=== PATIENT | male | born 1995 | race Caucasian/White ===

== ENCOUNTER 2023-07-26 23:17 | Emergency (ER) | payer OTHER ==
[2023-07-26 23:23] VITALS: BP 147/93; PULSE 96; RESP 20; TEMP 97.9; BMI 34.4
[2023-07-27] MEDS ORDERED: KETOROLAC TROMETHAMINE 15 MG/ML VIAL ONE (01:30)
[2023-07-27] MEDS ORDERED: ACETAMINOPHEN 325 MG TABLET (FP) ONE (01:30)
[2023-07-27] MEDS: KETOROLAC TROMETHAMINE 15 MG/ML VIAL IM ONE (01:35)
[2023-07-27] MEDS: ACETAMINOPHEN 325 MG TABLET (FP) PO ONE (01:36)
== END 2023-07-27 02:10 | disposition home or self-care (01) ==
LOC: JER 23:17
PROC: 3E0233Z Introduction of Anti-inflammatory into Muscle, Percutaneous Approach (ICD-10-PCS; principal; 2023-07-27)
DX: R00.2 Palpitations (principal); M79.602 Pain in left arm
CPT/HCPCS: 93005; 93010; 99284-25

== ENCOUNTER 2023-08-19 21:56 | Emergency (ER) | payer OTHER ==
[2023-08-19 21:59] VITALS: BP 131/85; PULSE 80; RESP 20; TEMP 98.2; BMI 33.3
[2023-08-19] MEDS ORDERED: FLUORESCEIN NA 1 EA STRIP ONE (22:03)
[2023-08-19] MEDS ORDERED: TETRACAINE 0.5% OPHTH SOLN 2 ML BOTTLE ONE (22:04)
[2023-08-19] MEDS: TETRACAINE 0.5% HCL 0.6ML DROPPER.BOTTLE OD ONE (22:04)
[2023-08-19] MEDS: FLUORESCEIN SODIUM 10% 500 MG/5 ML VIAL IVPUSH ONE (22:04)
[2023-08-19] MEDS ORDERED: ERYTHROMYCIN 0.5% OPHTHALMIC OINTMENT 3.5 GM TUBE ONE (22:11)
[2023-08-19] MEDS: ERYTHROMYCIN 0.5% OPHTHALMIC OINTMENT 3.5 GM TUBE OS ONE (22:26)
[2023-08-20] MEDS ORDERED: ERYTHROMYCIN 0.5% OPHTHALMIC OINTMENT 3.5 GM TUBE OD ONE (22:10)
== END 2023-08-19 22:27 | disposition home or self-care (01) ==
LOC: JERFT 21:56
DX: S05.01XA Injury of conjunctiva and corneal abrasion without foreign body, right eye, initial encounter (principal); W22.8XXA Striking against or struck by other objects, initial encounter
CPT/HCPCS: 99283-25

== ENCOUNTER 2023-09-02 08:14 | Emergency (ER) | payer OTHER ==
[2023-09-02 08:21] VITALS: BP 125/81; PULSE 94; RESP 20; TEMP 98.4; BMI 33.3
[2023-09-02] MEDS ORDERED: KETOROLAC TROMETHAMINE 30 MG/1 ML VIAL ONE (08:49)
[2023-09-02] MEDS ORDERED: ERYTHROMYCIN 0.5% OPHTHALMIC OINTMENT 3.5 GM TUBE ONE (08:50)
[2023-09-02] MEDS: KETOROLAC TROMETHAMINE 30 MG/1 ML VIAL IM ONE (08:57)
[2023-09-02] MEDS: ERYTHROMYCIN 0.5% OPHTHALMIC OINTMENT 3.5 GM TUBE OD SCH (08:58)
== END 2023-09-02 09:20 | disposition home or self-care (01) ==
LOC: JERFT 08:14
PROC: 3E023GC Introduction of Other Therapeutic Substance into Muscle, Percutaneous Approach (ICD-10-PCS; principal; 2023-09-02)
DX: H16.203 Unspecified keratoconjunctivitis, bilateral (principal); G44.89 Other headache syndrome
CPT/HCPCS: 99284-25

== ENCOUNTER 2023-09-29 11:43 | Emergency (ER) | payer OTHER ==
[2023-09-29 12:02] VITALS: BP 117/77; RESP 18; TEMP 98.2; BMI 34.4
[2023-09-29 12:12] VITALS: PULSE 89
[2023-09-29 13:16] LABS: BASO % 0.7 % (0-2.0); EOS % 1.5 % (0-4.5); HEMATOCRIT 50.6 % (35.4-49); HEMOGLOBIN 17.2 GM/dL (11.7-16.9); LYMPH % 17.6 % (8-40); MCH 28.5 pg (25.7-33.7); MEAN CELL VOLUME 83.8 fl (80-96); MEAN PLT VOLUME 8.2 fl (7.5-11.1); MONO % 10.1 % (3.8-10.2); NEUT % 70.1 % (42.8-82.8); PLATELET COUNT 283 10^3/uL (134-434); RBC 6.03 M/mm3 (4.00-5.60); RDW 14.3 % (11.9-15.9); WHITE BLOOD COUNT 7.7 K/mm3 (4.0-10.0)
[2023-09-29 13:26] LABS: POTASSIUM 4.4 mmol/L (3.5-5.1)
[2023-09-29 13:28] LABS: CALCIUM 9.3 mg/dL (8.5-10.1)
[2023-09-29 13:29] LABS: BLOOD UREA NITROGEN 13.3 mg/dL (7-18)
[2023-09-29 13:32] LABS: CREATININE 0.9 mg/dL (0.55-1.3)
[2023-09-29 13:33] LABS: BILIRUBIN,TOTAL 0.9 mg/dL (0.2-1); TOT PROT 7.5 g/dl (6.4-8.2)
== END 2023-09-29 14:22 | disposition home or self-care (01) ==
LOC: JER 11:43
DX: R07.2 Precordial pain (principal); R00.2 Palpitations; R05.9 Cough, unspecified
CPT/HCPCS: 36415; 71046-TC-FY; 80053; 84484; 85025; 93005; 93010; 99285-25